=== PATIENT | female | born 1960 | race Caucasian/White ===

== ENCOUNTER 2017-05-08 09:10 | Emergency (ER) | payer MEDICAID ==
--- NOTE | 2017-05-08 09:24 | Emergency Department Record ---
History of Present Illness - General Chief Complaint: Numbness Stated Complaint: MOUTH DROOPING/ SPEECH SLURRED Time Seen by Provider: 05/08/17 09:22 Source: Patient Mode of Arrival: Ambulatory Limitations: No limitations - History of Present Illness Initial Comments: The patient is here due to not feeling well today. Her states she was having trouble with her speech last night and then when she got up at 8am today she was having trouble with her balance and he noticed a R facial droop. The patient denies any recent head pain, nausea, or any illnesses and states she just does not feel right. She denies any trouble swallowing, CP, SOB, or any focal arm or leg numbness, or weakness. The patient does not smoke and has not seen a doctor for many years. Onset/Timin -: Hour(s) Associated Symptoms: Confusion, Malaise - Related Data Home Medications: Home Medications Medication Instructions Recorded Confirmed Last Taken No Home Med [NO HOME MEDS] 05/08/17 05/08/17 Unknown Allergies/Adverse Reactions: Allergies Allergy/AdvReac Type Severity Reaction Status Date / Time No Known Drug Allergies Allergy Verified 05/08/17 09:26 Review of Systems Constitutional: Denies: Chills, Fever Eyes: Denies: Eye discharge ENT: Denies: Congestion Respiratory: Denies: Cough, Dyspnea Past Medical History - SOCIAL HISTORY Smoking Status: Never smoker Alcohol Use: None Drug Use: None - CHEF ASSISTANT History LMP comments: Reports: none - RESPIRATORY Hx Respiratory Disorders: No - CARDIOVASCULAR Hx Cardio Disorders: No - NEURO Hx Neuro Disorders: No Physical Exam - General General Appearance: Alert, Oriented x3, Cooperative, No acute distress - Head Head exam: Atraumatic, Normocephalic, Normal inspection - Eye Eye exam: Normal appearance, PERRL, EOMI - ENT Throat exam: Normal inspection. negative: Tonsillar erythema, Tonsillar exudate - Neck Neck exam: Normal inspection, Full ROM. negative: Tenderness - Respiratory Respiratory exam: Normal lung sounds bilaterally. negative: Respiratory distress - Cardiovascular Cardiovascular Exam: Regular rate, Normal rhythm, Normal heart sounds - GI/Abdominal GI/Abdominal exam: Soft, Normal bowel sounds. negative: Tenderness - Extremities Extremities exam: Normal inspection, Full ROM, Normal capillary refill. negative: Tenderness - Neurological Neurological exam: Abnormal gait, Alert, Motor sensory deficit (There is a R facial droop.), Oriented X3, Other (Finger to nose: WNL bilaterally.). negative : Altered, Normal gait - Psychiatric Psychiatric exam: negative: Anxious, Depressed Course - Reevaluation(s) Reevaluation #1: The patient is doing OK at this time. There is no change in her condition but her BP is improved. I do think the patient suffered a CVA last evening. The Head CT does not demonstrate any acute changes. Due to that fact I did discuss the case with Dr. Perez at [facility] and he does accept the patient to the Stroke Service. 05/08/17 10:13 Medical Decision Making - Data Complexity MDM Data: Labs Ordered and/or Reviewed, X-Ray Ordered and/or Reviewed, EKG Ordered and/or Reviewed - Lab Data Result diagrams: 05/08/17 09:27 05/08/17 09:27 - EKG Data -: EKG Interpreted by Me EKG: No Acute Changes, Normal EKG - Radiology Data Radiology results: Report reviewed (Head CT: Neg for any acute changes.) Disposition Disposition: Transfer Clinical Impression: CVA (cerebral vascular accident) Qualifiers: CVA mechanism: unspecified Qualified Code(s): I63.9 - Cerebral infarction, unspecified Disposition: Acute Care Hospital Transfer Transfer To: [facility] Reason For Transfer: Stroke Accepting Physician: Ana Time Discussed w/Accepting Physician: 10:15 Condition: (2) Stable Forms: Patient Portal Access Time of Disposition: 10:15 Quality - Quality Measures Quality Measures: N/A - Blood Pressure Screening View Details: Yes Does Patient Have Any of the Following: No Blood Pressure Classification: Hypertensive Reading Systolic Measurement: 208 Diastolic Measurement: 123 Screening for High Blood Pressure: < First Hypertensive BP, F/U Documented > [ [id number]] First Hypertensive Follow-up Interventions: Referral to alternative/primary care provider.
[2017-05-08 09:35] LABS: BASO % 0.4 % (0-6); GRAN % 72.1 % (47-80); HEMATOCRIT 45.2 % (35.0-47.0); HEMOGLOBIN 14.9 gm/dl (11.6-16.0); LYMPH % 20.2 % (16-45); MEAN CELL VOLUME 84.2 fl (81-97); MEAN CORPUSCULAR HEMOGLOBIN 27.7 pg (27-33); MEAN PLATELET VOLUME 12.2 fl (7.4-10.4); MONO % 6.3 % (0-9); PLATELET COUNT 271 K/uL (130-400); RED BLOOD COUNT 5.37 M/uL (3.80-5.40); RED CELL DISTRIBUTION WIDTH 13.3 % (11.5-14.5); WHITE BLOOD COUNT W/O DIFF 7.2 K/uL (4.2-12.2)
[2017-05-08 09:46] LABS: BLOOD UREA NITROGEN 16 mg/dL (6-20); CREATININE 0.5 mg/dL (0.5-0.9); EST GLOMERULAR FILTRATION RATE > 60 mL/min
[2017-05-08 09:49] LABS: GLUCOSE,RANDOM 336 mg/dL (74-109)
[2017-05-08 09:50] LABS: INR 0.99; PARTIAL THROMBOPLASTIN TIME 25.4 SECONDS (24.5-39.1); PROTHROMBIN TIME (PATIENT) 10.7 SECONDS (9.5-12.1)
[2017-05-08 09:52] LABS: CREATINE PHOSPHOKINASE 42 U/L (26-192)
[2017-05-08] MEDS ORDERED: ASPIRIN 325 MG TABLET PO ONE (10:11)
--- NOTE | 2017-05-08 20:54 | CT SCAN REPORT ---
EXAM: CT SCAN HEAD WO CONTRAST HISTORY: SLURRED SPEECH. RIGHT-SIDED WEAKNESS. TECHNIQUE: Noncontrast head CT. COMPARISON: None. FINDINGS: The ventricles and subarachnoid spaces are unremarkable. There are scattered, somewhat ill-defined areas of low density in the periventricular, deep cerebral, and subcortical white matter regions bilaterally, greater than expected for the patient's age. These findings may be related to chronic small vessel ischemic change. Other etiologies difficult to entirely exclude. No CT evidence for large acute territorial infarct. There is no fracture or acute osseous abnormality identified. There is no mass or mass effect. No intra or extraaxial hemorrhage. The visualized sinuses are clear. No evidence for a hyperdense MCA sign. IMPRESSION: 1. AREAS OF WHITE MATTER HYPODENSITY ARE PRESENT, GREATER THAN EXPECTED FOR THE PATIENT'S AGE. ETIOLOGY IS NOT ENTIRELY CERTAIN BUT MAY BE RELATED TO CHRONIC SMALL VESSEL ISCHEMIC CHANGE. 2. NO LARGE ACUTE TERRITORIAL INFARCT SEEN, ALTHOUGH SMALL INFARCTS CAN'T BE EXCLUDED ON THIS EXAMINATION. 3. MRI OF THE BRAIN COULD BE PERFORMED FOR FURTHER ASSESSMENT. 4. NO MASS OR HEMORRHAGE. JOB NUMBER: [id number] [facility]
== END 2017-05-08 12:03 | disposition short-term general hospital (02) ==
LOC: ER 09:10
DX: R47.81 Slurred speech (principal); R53.1 Weakness; R53.81 Other malaise
CPT/HCPCS: 70450; 80048; 82550; 85025; 85610; 85730; 93005; 93010; 99285